=== PATIENT | female | born 1950 | race Caucasian/White ===

== ENCOUNTER 2024-09-22 10:05 | Emergency (ER) | payer MEDICARE, BC, SELFPAY ==
[2024-09-22 10:13] VITALS: BP 176/81; PULSE 90; RESP 16; TEMP 36.8; O2SAT 99
[2024-09-22] MEDS: Tetracaine 0.5% 4 ML BTL OP (10:33)
[2024-09-22] MEDS: Fluorescein STRIPS 100/BOX 1 MG OP (10:34)
[2024-09-22 11:27] LABS: Abs Immature Grans 0.03 10^3/uL (0.0-0.06); HCT 35.8 % (36.0-46.0); HGB 11.9 g/dL (11.2-15.7); Immature Grans % 0.4 %; MCH 28.5 pg (27.0-33.0); MCHC 33.2 % (32.0-36.0); MCV 86 fL (80-95); MPV 8.8 fL (8.0-11.0); Platelet Count 537 10^3/uL (130-400); RBC 4.17 10^6/uL (3.93-5.22); RDW 13.4 % (11.7-14.6); RDW-SD 42.0 fL; WBC 7.39 10^3/uL (4.4-10.8)
[2024-09-22 11:43] LABS: ALT 22 U/L (14-59); AST 19 U/L (15-37); Albumin 4.2 g/dL (3.4-5.0); Alkaline Phosphatase 159 U/L (46-116); Anion Gap 10.5 mmol/L (3-11); BUN 11 mg/dL (7-18); Bilirubin, Total 0.3 mg/dL (0.2-1.0); CO2 27.5 mmol/L (21.0-32.0); Calcium 9.3 mg/dL (8.5-10.1); Chloride 97 mmol/L (98-107); Estimated GFR 67.50 (mL/min/1.73m2); Glucose 110 mg/dL (74-106); Potassium 4.2 mmol/L (3.5-5.1); Sodium 135 mmol/L (136-145); Total Protein 8.6 g/dL (6.4-8.2)
--- NOTE | 2024-09-22 12:00 | DI.CT_ITS ---
Exam(s) CT BRAIN CTA EXAM: CT BRAIN CTA CLINICAL HISTORY: Right eye visual disturbances, R/O retinal occlusi. TECHNIQUE: Imaging Protocol: Axial CT angiography was performed with multi- slice acquisition and multi-planar and/or 3D reconstructions. CONTRAST MATERIAL: Intravenous: Omnipaque 350 Contrast volume:70 mL COMPARISON: No exams were available for comparison FINDINGS: Ventricles and Extra axial spaces: Normal in size and morphology for the patient's age. Hemorrhage: None. Cerebral parenchyma: Normal. Midline shift: None. Brainstem/Cerebellum: Normal. Calvarium: Normal. Visualized Paranasal sinuses/Mastoids: Mucous retention within the maxillary and ethmoid sinuses as well as left frontal and sphenoid sinuses. Soft Tissues: Unremarkable. Enhancement: No abnormal enhancing lesions. Orbits: Bilateral cataract surgery. CTA Brain W: Internal Carotid Arteries: Petrous: Normal. Cavernous: Normal. Cerebral: Normal. Superior ophthalmic arteries appear patent proximally. Not well evaluated distally due to small diameter of vessel. Middle Cerebral Arteries: Right: No aneurysm, occlusion or significant stenosis. Left: No aneurysm, occlusion or significant stenosis. Anterior Cerebral Arteries: Right: No aneurysm, occlusion or significant stenosis. Left: No aneurysm, occlusion or significant stenosis. Posterior cerebral Arteries: Right: No aneurysm, occlusion or significant stenosis. Left: No aneurysm, occlusion or significant stenosis. Vertebral Arteries: Right: No aneurysm, occlusion or significant stenosis. Left: No aneurysm, occlusion or significant stenosis. Basilar Artery: No aneurysm, occlusion or significant stenosis. IMPRESSION: Normal CTA examination of the [place]. Unremarkable CT Head. The preliminary [facility] report was reviewed. RADIATION DOSE DELIVERED: Total DLP Total DLP DATA REPOSITORY: All CT scans at this facility are submitted to the National Radiology Data Registry (NRDR) Dose Index Registry (DIR) with the [employer] (ACR). RADIATION OPTIMIZATION: All CT scans at this facility use at least one of these dose optimization techniques: automated exposure control; mA and/or kV adjustment per patient size (includes targeted exams where dose is matched to clinical indication); or iterative reconstruction.
[2024-09-22] MEDS: Normal Saline - Diluent 50 ML VIAL IJ (12:41)
[2024-09-22] MEDS: Omnipaque 350 MG/ML 100 ML BTL IJ (12:41)
--- NOTE | 2024-09-22 13:03 | DI.[facility]_ITS ---
PROCEDURE INFORMATION: Exam: CTA Head Without And With Contrast, Arteriography Exam date and time: 09/22/2024 12:38 PM Age: 74 years old Clinical indication: Other: Right eye visual disturbances, R/O retinal occlusion TECHNIQUE: Imaging protocol: Computed tomographic angiography of the head without and with contrast. Exam focused on the arteries. 3D rendering (Not supervised by radiologist): MIP and/or 3D reconstructed images were created by the technologist. Radiation optimization: All CT scans at this facility use at least one of these dose optimization techniques: automated exposure control; mA and/or kV adjustment per patient size (includes targeted exams where dose is matched to clinical indication); or iterative reconstruction. Contrast material: OMNI 350; Contrast volume: 70 ml; Contrast route: INTRAVENOUS (IV); COMPARISON: No relevant prior studies available. FINDINGS: ANTERIOR CIRCULATION: Right internal carotid artery: Intracranial segment is patent with no significant stenosis or occlusion. No aneurysm. Right middle cerebral artery: No occlusion or significant stenosis. No aneurysm. Right anterior cerebral artery: No occlusion or significant stenosis. No aneurysm. Left internal carotid artery: Intracranial segment is patent with no significant stenosis. No aneurysm. Left middle cerebral artery: No occlusion or significant stenosis. No aneurysm. Left anterior cerebral artery: No occlusion or significant stenosis. No aneurysm. POSTERIOR CIRCULATION: Right vertebral artery: No occlusion or significant stenosis. No aneurysm. Left vertebral artery: No occlusion or significant stenosis. No aneurysm. Basilar artery: No occlusion or significant stenosis. No aneurysm. Right posterior cerebral artery: No occlusion or significant stenosis. No aneurysm. Left posterior cerebral artery: No occlusion or significant stenosis. No aneurysm. HEAD: Brain: Age related diffuse parenchymal volume loss. Cerebral ventricles: Ex vacuo dilatation of the ventricles. Bones: Unremarkable. No acute fracture. Orbital cavities: Post bilateral cataract surgery. Paranasal sinuses: Mucous retention cysts in bilateral maxillary sinuses. There are frothy secretions in the left sphenoid sinus. There is mucosal disease of the left frontal sinus and ethmoid air cells. Mastoid air cells: Visualized mastoids are normal. No mastoid effusion. Soft tissues: Unremarkable. IMPRESSION: No significant arterial stenosis or convincing changes of retinal artery occlusion. Dictated and Authenticated by: Asif Lara MD. Orderin Nadege Parisi MD
--- NOTE | 2024-09-22 13:23 | W.ED.GENAD ---
Discharge Plan Disposition Patient Disposition: Home Condition: Stable Discharge Details Clinical Impression: Visual disturbance of one eye Primary Care Provider: Ania Sal ED Provider: Ailin Light Home Meds and New Rx's Prescriptions: Continued omeprazole 40 mg capsule,delayed release(DR/EC) 40 mg PO DAILY alendronate 10 mg tablet 10 mg PO DAILY Discharge Instructions Instructions: Floaters in the Eye Additional Instructions: At this time the CT imaging shows no evidence of retinal occlusion. No evidence of stroke. Please follow-up with ophthalmology either through [facility] or [facility]. You are placed on a care management list to assist you with getting an appointment. You may also call [facility]. I do recommend urgent follow-up within the next week if possible. Please begin taking a [id number] chewable 81 mg aspirin daily. A lipid panel was added onto your labs drawn here in the emergency department. Follow up with ophthalmology in 1 week. Follow up with primary care provider in 3 weeks. Return to ED sooner if any worsening visual disturbances, worsening headache or concerns. [facility], [facility] - 5 days Clinical Impression: Visual disturbance of one eye OPHTHALMOLOGY,[facility] [place] [OTHER] - 5 days Referral Note: ER follow up Right eye visual disturbances Clinical Impression: Visual disturbance of one eye Ania Sal [Primary Care Provider, Medicine] - 2 weeks [facility]ALMOLOGY,[facility] [OTHER, Ophthalmology Medical] - 5 days Referral Note: ER follow up right eye visual disturbances Clinical Impression: Visual disturbance of one eye Discharge Data Discharge Date/Time-TO BE ENTERED AT DEPARTURE: 09/22/24 14:17 HPI General Mode of arrival: ambulatory. Date/Time Provider Initiated Documentation: 09/22/24 10:06. Limitations to Documentation: no limitations. Information obtained by: patient, family, RN notes reviewed and old records reviewed. HPI Narrative: 74-year-old female presents to the ER with a chief complaint of visual disturbances to her right eye which began this morning. She describes it as wavy black lines and worsening black dots that she describes as aziza. She denies any recent head injuries, is complaining of right temporal headache. She is alert and oriented x 4. She does have a history of cataract surgery which was completed in 2018 at [facility] by a Dr. Diallo. She also reports that her mom has a retinal abnormality. Related Data Home Medications ?Medication ?Instructions ?Recorded ?Confirmed alendronate 10 mg tablet 10 mg PO DAILY 09/22/24 09/22/24 omeprazole 40 mg capsule,delayed 40 mg PO DAILY 09/22/24 09/22/24 release Allergies Allergy/AdvReac Type Severity Reaction Status Date / Time No Known Allergies Allergy Unverified 09/22/24 10:15 General Stated Complaint: EyeProblem MARGARITA: 3 Review of Systems All systems reviewed & are unremarkable except as noted in HPI and below Constitutional Constitutional: Reports headache(s) Eyes Eyes: Reports change in vision, Reports floaters, Denies eye pain, Denies seeing flashes and Reports spots in vision ENT Ears, Nose, Mouth, and Throat: Reports headache(s) Neurologic Neurologic: Reports headache(s) Exam Const General: cooperative, healthy appearing, comfortable, well developed and well groomed Nutritional Appearance: average body habitus Orientation: alert, awake and oriented x3 HENMT Head: normal to inspection Eyes General: appearance normal, both eyes and all related structures Visual Kan: normal visual kan by confrontation (20/25 corrected bilaterally, 20/70 uncorrected bilaterally) Alignment and Position: alignment normal and position normal Periorbital: periorbital findings normal Eyelids: eyelids normal Conjunctivae: conjunctivae normal Sclera: sclerae normal Cornea: corneas normal Pupils: PERRL, normal by confrontation and pupil size bilaterally 4 EOM: EOM intact bilaterally Direct ophthalmoscopy: normal light reflex and anterior chamber normal Neuro General: patient alert, patient awake, patient oriented x3, gait normal, tone normal, normal light touch, pain and propioception and not confused Cranial Nerves: CN's II-XI intact bilaterally, PERRL, EOM intact bilaterally, no nystagmus, facial strength normal, tongue midline, gag reflex normal, able to rotate head bilaterally and able to elevate shoulders bilaterally Cognition: normal cognition Speech: speech normal Gait: normal gait Motor: muscle tone normal throughout Sensory Exam: no sensory deficits noted Course Vital Signs Vital signs: Vital Signs Temperature 36.8 C 09/22/24 10:13 Pulse 90 09/22/24 10:13 Respiratory Rate 16 09/22/24 10:13 Blood Pressure 176/81 H 09/22/24 10:13 Pulse Oximetry 99 09/22/24 10:13 Temperature 36.8 C 09/22/24 10:13 Temperature Source Oral 09/22/24 10:13 Pulse 90 09/22/24 10:13 Respiratory Rate 16 09/22/24 10:13 Blood Pressure 176/81 H 09/22/24 10:13 Blood Pressure Position Sitting 09/22/24 10:13 Pulse Oximetry 99 09/22/24 10:13 Oxygen Delivery Method Room Air 09/22/24 10:13 Oxygen Flow Rate 0 09/22/24 10:13 Pain Level 0 09/22/24 10:13 Lab/Test Results Lab/Test Results: Laboratory Tests Range/Units 09/22/24 11:20 WBC (4.4-10.8) 10^3/uL 7.39 RBC (3.93-5.22) 10^6/uL 4.17 Hgb (11.2-15.7) g/dL 11.9 Hct (36.0-46.0) % 35.8 L MCV (80-95) fL 86 MCH (27.0-33.0) pg 28.5 MCHC (32.0-36.0) % 33.2 RDW (11.7-14.6) % 13.4 Plt Count (130-400) 10^3/uL 537 H MPV (8.0-11.0) fL 8.8 Immature Gran % % 0.4 Neutrophils % % 65.3 Lymphocytes % % 23.8 Monocytes % % 5.7 Eosinophils % % 3.9 Basophils % % 0.9 Nucleated RBC % (0.0-0.3) % 0.0 Absolute Neutrophils (1.2-6.7) 10^3/uL 4.82 Absolute Lymphocytes (1.2-3.4) 10^3/uL 1.76 Absolute Monocytes (0.1-0.8) 10^3/uL 0.42 Absolute Eosinophils (0.0-0.7) 10^3/uL 0.29 Absolute Basophils (0.0-0.2) 10^3/uL 0.07 Sodium (136-145) mmol/L 135 L Potassium (3.5-5.1) mmol/L 4.2 Chloride (98-107) mmol/L 97 L Carbon Dioxide (21.0-32.0) mmol/L 27.5 Anion Gap (3-11) mmol/L 10.5 BUN (7-18) mg/dL 11 Creatinine (0.55-1.02) mg/dL 0.9 Est GFR (CKD-EPI 2020) (mL/min/1.73m2) 67.50 Glucose (74-106) mg/dL 110 H Calcium (8.5-10.1) mg/dL 9.3 Total Bilirubin (0.2-1.0) mg/dL 0.3 AST (15-37) U/L 19 ALT (14-59) U/L 22 Alkaline Phosphatase (46-116) U/L 159 H Total Protein (6.4-8.2) g/dL 8.6 H Albumin (3.4-5.0) g/dL 4.2 Medical Decision Making 74-year-old female presents to the ER with a chief complaint of visual disturbances to her right eye which began this morning. She describes it as wavy black lines and worsening black dots that she describes as aziza. She denies any recent head injuries, is complaining of right temporal headache. She is alert and oriented x 4. She does have a history of cataract surgery which was completed in 2018 at [facility] by a Dr. Diallo. She also reports that her mom has a retinal abnormality. Tonometer at bedside which shows left eye pressure at 16, right eye pressure 14. Red reflex noted bilaterally, Fontenot lamp exam performed with fluorescein and tetracaine. No abnormalities noted. EOMs intact. CT brain with contrast ordered to rule out retinal occlusion. CT shows no evidence of retinal occlusion no CVA no stenosis no occlusion arterially.. Platelets are 537, sodium 135, potassium 4.2 glucose 110 alk phos 159. Patient given 324 mg of aspirin instructed to take 81 mg baby aspirin chewable aspirin daily. Referrals placed for ophthalmology and should be family eye care or tertiary care facility. Instructed on follow-up with patient who verbalized understanding. Discussed tricked return instructions. Patient discharged into the care of her family. Was ambulatory upon discharge from the department. This text was generated using [employer] system, please disregard any oddities of phrase or misspellings. Imaging Data Radiologic Study: Imaging: CT Scan Radiologist's impression: FINDINGS: ANTERIOR CIRCULATION: Right internal carotid artery: Intracranial segment is patent with no significant stenosis or occlusion. No aneurysm. Right middle cerebral artery: No occlusion or significant stenosis. No aneurysm. Right anterior cerebral artery: No occlusion or significant stenosis. No aneurysm. Left internal carotid artery: Intracranial segment is patent with no significant stenosis. No aneurysm. Left middle cerebral artery: No occlusion or significant stenosis. No aneurysm. Left anterior cerebral artery: No occlusion or significant stenosis. No aneurysm.: Right vertebral artery: No occlusion or significant stenosis. No aneurysm. Left vertebral artery: No occlusion or significant stenosis. No aneurysm. Basilar artery: No occlusion or significant stenosis. No aneurysm. Right posterior cerebral artery: No occlusion or significant stenosis. No aneurysm. Left posterior cerebral artery: No occlusion or significant stenosis. No aneurysm. HEAD: Brain: Age related diffuse parenchymal volume loss. Cerebral ventricles: Ex vacuo dilatation of the ventricles. Bones: Unremarkable. No acute fracture. Orbital cavities: Post bilateral cataract surgery. Paranasal sinuses: Mucous retention cysts in bilateral maxillary sinuses. There are frothy secretions in the left sphenoid sinus. There is mucosal disease of the left frontal sinus and ethmoid air cells. Mastoid air cells: Visualized mastoids are normal. No mastoid effusion. Soft tissues: Unremarkable. IMPRESSION: No significant arterial stenosis or convincing changes of retinal artery occlusion. Thank you for allowing us to participate in the care of your patient. Dictated and Authenticated by: Asif Lara MD Lab Data Lab results reviewed: Yes I reviewed the patient's lab results. Labs: Laboratory Tests Range/Units 09/22/24 11:20 WBC (4.4-10.8) 10^3/uL 7.39 RBC (3.93-5.22) 10^6/uL 4.17 Hgb (11.2-15.7) g/dL 11.9 Hct (36.0-46.0) % 35.8 L MCV (80-95) fL 86 MCH (27.0-33.0) pg 28.5 MCHC (32.0-36.0) % 33.2 RDW (11.7-14.6) % 13.4 Plt Count (130-400) 10^3/uL 537 H MPV (8.0-11.0) fL 8.8 Immature Gran % % 0.4 Neutrophils % % 65.3 Lymphocytes % % 23.8 Monocytes % % 5.7 Eosinophils % % 3.9 Basophils % % 0.9 Nucleated RBC % (0.0-0.3) % 0.0 Absolute Neutrophils (1.2-6.7) 10^3/uL 4.82 Absolute Lymphocytes (1.2-3.4) 10^3/uL 1.76 Absolute Monocytes (0.1-0.8) 10^3/uL 0.42 Absolute Eosinophils (0.0-0.7) 10^3/uL 0.29 Absolute Basophils (0.0-0.2) 10^3/uL 0.07 Sodium (136-145) mmol/L 135 L Potassium (3.5-5.1) mmol/L 4.2 Chloride (98-107) mmol/L 97 L Carbon Dioxide (21.0-32.0) mmol/L 27.5 Anion Gap (3-11) mmol/L 10.5 BUN (7-18) mg/dL 11 Creatinine (0.55-1.02) mg/dL 0.9 Est GFR (CKD-EPI 2020) (mL/min/1.73m2) 67.50 Glucose (74-106) mg/dL 110 H Calcium (8.5-10.1) mg/dL 9.3 Total Bilirubin (0.2-1.0) mg/dL 0.3 AST (15-37) U/L 19 ALT (14-59) U/L 22 Alkaline Phosphatase (46-116) U/L 159 H Total Protein (6.4-8.2) g/dL 8.6 H Albumin (3.4-5.0) g/dL 4.2 PFSH All Active Problems (Updated 09/22/24 @ 14:00 by Ailin Light NP) Visual disturbance of one eye (Acute) Social History Smoking/Tobacco Use Status: Never Smoking risk assessment performed?: Yes Alcohol Intake: never Drug use: Never Housing: house Do you feel safe at home: Yes Do you feel safe in your relationship?: Yes
[2024-09-22] MEDS: Aspirin 81 MG CHEW 324 MG CH (14:17)
[2024-09-22 18:22] LABS: Calculated LDL 156 mg/dL (<100); Cholesterol 241 mg/dL (<200); HDL Cholesterol 65 mg/dL (>or=50); Triglyceride 104 mg/dL (<150)
[2024-09-22 23:38] LABS: Lab Add On Test DONE
== END 2024-09-22 14:17 | disposition home or self-care (01) ==
PROVIDERS: Emergency Provider Registered Nurse Emergency; PCP Registered Nurse
DX: H53.9 Unspecified visual disturbance (principal); R51.9 Headache, unspecified
CPT/HCPCS: 70496; 80053; 80061; 99285; 85025; 99284; J3490